=== PATIENT | female | born 1980 | race Caucasian/White ===

== ENCOUNTER 2017-04-12 17:41 | Emergency (ER) | payer OTHER ==
[~2017-04-12] VITALS: Ht 165.1 cm; Wt 68.0 kg
[2017-04-12] MEDS ORDERED: CYCLOBENZAPRINE5 MG PO (18:12)
[2017-04-12] MEDS ORDERED: DICLOFENAC SOD50 M1 PO (18:13)
[2017-04-12] MEDS ORDERED: NORCO 5-325 TA1 EACH PO (18:31)
[2017-04-12] MEDS ORDERED: VALIUM5 MG PO (18:31)
[2017-04-12 19:10] VITALS: BP 111/70
== END 2017-04-12 19:10 | disposition home or self-care (01) ==
LOC: ER 17:41
DX: M54.41 Lumbago with sciatica, right side (principal)